=== PATIENT | male | born 1965 | race Caucasian/White ===

== ENCOUNTER 2023-11-23 14:10 | Emergency (ER) | payer OTHER, SELFPAY ==
[2023-11-23 14:10] VITALS: BP 187/100; PULSE 72; RESP 16; TEMP 36.2; O2SAT 98; BMI 16.9
--- NOTE | 2023-11-23 14:12 | EKG12_ITS ---
Test Reason : Blood Pressure : / mmHG Vent. Rate : 070 BPM Atrial Rate : 070 BPM P-R Int : 152 ms QRS Dur : 082 ms QT Int : 424 ms P-R-T Axes : 059 054 051 degrees QTc Int : 457 ms Sinus rhythm with occasional Premature ventricular complexes Otherwise normal ECG Confirmed by RAJAN LEAVITT, ROD ([id number]), field map editor BARBARA ZUNIGA ([id number]) on 11/25/2023 11:41:46 AM Referred By: Lucien Tyler Confirmed By:ROD TOLENTINO MD
--- NOTE | 2023-11-23 14:20 | NURSING ---
NO OLD EKGS
--- NOTE | 2023-11-23 14:50 | RAD_ITS ---
STUDY: X-RAY CHEST REASON FOR EXAM: Male, 58 years old. CP TECHNIQUE: Single AP portable view of the chest. COMPARISON: None. FINDINGS: EKG electrodes are seen. The lungs are clear and expanded. There is no demonstrated pleural abnormality. Normal size heart. Normal mediastinum and homer. Normal visualized pulmonary arteries. There is atherosclerotic tortuosity of the aortic arch and descending thoracic aorta. There are diffuse degenerative changes of the visualized thoracic spine. Normal visualized ribs, clavicles, and shoulders. There is no demonstrated abnormality of the visualized soft tissue structures of the upper abdomen. RAD/Chest 1 View (Portable) IMPRESSION: No acute abnormality is seen. Electronically Signed: Chino Verdin MD at 15:01 EDT ,
[2023-11-23 14:54] LABS: Absolute Lymphocyte Count 3.01 X10^3/uL (0.83-4.51); Absolute Neutrophil Count 4.5 X10^3/uL (2.0-7.7); Basophil# 0.08 X10^3/uL; Basophil% 0.9 % (0-1); Eosinophil# 0.25 X10^3/uL; Eosinophils% 2.9 % (0-5); Hematocrit 44.6 % (40-54); Hemoglobin 15.2 g/dL (13.0-16.5); Lymphocyte # 3.01 X10^3/ul (0.83-4.51); Lymphocyte % 34.8 % (19-41); Mean Corp Hgb Conc 34.1 g/dL (32-36); Mean Corpuscular Hgb 30.5 pg (27.0-32.0); Mean Corpuscular Volume 89.6 fL (80-94); Mean Platelet Vol. 10.2 fl (6.2-12.0); Monocyte# 0.77 X10^3/uL; Monocyte% 8.9 % (0-10); NRBC Flagged by Analyzer 0 % (0-5); Neutrophil # 4.53 X10^3/uL (2.7-7.7); Neutrophil % 52.3 % (47-70); Platelet Count 209 K/mm3 (150-450); RBC Distribution Width CV 12.9 % (11.6-14.6); RBC Distribution Width SD 42.3 fl (35.1-43.9); Red Blood Count 4.98 M/mm3 (4.6-6.2); White Blood Count 8.7 K/mm3 (4.4-11.0)
[2023-11-23 14:55] LABS: Anion Gap 4 (5-15); BUN 13 mg/dL (7-18); BUN/Creat Ratio 13.4 RATIO (10-20); Calcium,Total 8.8 mg/dL (8.5-10.1); Chloride 109 mmol/L (98-107); Creatinine, Serum 0.97 mg/dL (0.70-1.30); EST Glomerular Filtration Rate 84 mL/min (>60); Est Glom Filt Rate - Afr Amer 102 mL/min (>60); Estimated Creatinine Clearance 65.28 ml/min; Glucose 121 mg/dL (74-106); Potassium 3.7 mmol/L (3.5-5.1); Sodium Level 141 mmol/L (136-145); Troponin-I HS (w/2H Reflex) 9 pg/mL (3.0-78.0)
--- NOTE | 2023-11-23 15:07 | EDS_ITS ---
HPI History of Present Illness Chief Complaint: Chest Pain Informant: patient Narrative Narrative: Patient presents with left upper chest chest discomfort going down his arm along with some tingling there, no weakness, that been present since he woke up this morning. Seen about 1500. It has been there all day and constant. Nonpleuritic. With it present he went on a 30-minute walk about 1.5 miles or so, he had no worsening. He had no dyspnea. When he got home he got off the couch to walk to the kitchen and he felt short of breath. He has had episodes of the chest and arm discomfort seemingly randomly over the past 3 weeks or so and occasional dyspnea on exertion. Whenever he does not feel well he checks his blood pressure and it tends to be really high. He also had some palpitations 3 to 4 weeks ago, so his doctor changed his blood pressure med ication and he has not had any more. He is scheduled to follow-up tomorrow to be evaluated for possible Holter monitor with his PCP. Also had an EKG with his PCP 3 to 4 weeks ago and was told he had a right bundle branch block. States he used to exercise more rigorously never had chest discomfort with it. He has been trying to walk twice a day for 30 minutes, approximately 20-minute miles, regularly and does not recall this exertion triggering chest discomfort. He has never had a stress test. He has a history of smoking and his father from heart attack at age 55. CVD Risk Factors: Positive for Hypertension, Family History 1' </=55 and Smoking; Negative for Diabetes or Hypercholesterolemia PE Risk Factors: Negative for Recent Travel/Surgery, Recent Immobilization, Prior DVT or PE, Cancer or OCP + Smoking + >/=35 [facility] Medical History (Updated 11/23/23 @ 17:[address] Lucien Tyler MD) Mitral valve prolapse Hypertension Allergy/AdvReac Type Severity Reaction Status Date / Time No Known Allergies Allergy Verified 11/23/23 14:10 Surgical History H/O right knee surgery Social History Smoking Status: Former smoker ROS ROS ED Constitutional Constitutional ED: Denies chills, fever(s) or sweats Eyes Eyes: Denies change in vision or diplopia ENT ENT ED: Denies rhinorrhea or sore throat Cardiovascular Cardiovascular: Reports chest pain and palpitations; Denies lightheadedness, pedal edema or syncope Respiratory/Chest Respiratory/Chest: Reports dyspnea on exertion; Denies cough Gastrointestinal Gastrointestinal: Denies abdominal pain, diarrhea, nausea or vomiting Genitourinary Genitourinary ED: Denies dysuria or hematuria Musculoskeletal Musculoskeletal: Denies back pain or neck pain Integumentary Denies abscess or rash Neurologic Neurologic: Denies headache(s), paresthesias or weakness Psychiatric Psychiatric: Denies anxiety or suicidal thoughts EXAM Physical Exam Const Vital Signs: 11/23/23 14:10 11/23/23 14:37 11/23/23 14:37 Temperature 97.2 F L Temperature Source Temporal Pulse Rate 72 Respiratory Rate 16 Respiratory Effort Normal Blood Pressure 187/100 H Blood Pressure Mean 129 Pulse Ox 98 Oxygen Delivery Method Room Air Room Air 11/23/23 16:10 11/23/23 16:25 Temperature Temperature Source Pulse Rate 57 L 57 L Respiratory Rate 19 H Respiratory Effort Blood Pressure 132/92 H 143/94 H Blood Pressure Mean 105 Pulse Ox 95 Oxygen Delivery Method Room Air Positive well nourished and well developed General Appearance ED: well developed and NAD HEENT Reports moist mucous membranes normocephalic and atraumatic Eyes PERRL and EOMs intact bilaterally Neck full ROM and supple Resp normal respiratory effort and clear to auscultation bilaterally Cardio regular rate, regular rhythm and no murmurs GI non-tender and non-distended Auscultation: normoactive bowel sounds Palpation: soft Back/Spine no CVA tenderness General Back: other FROM Extremity normal to inspection General Extremety ED: Negative for edema, pulses abnormal or tenderness General Extremity: Negative for edema or pulses abnormal Neuro oriented x3, CN's II-XII intact bilaterally and no sensory deficits noted Sensorium / Orientation: awake and alert Motor Exam: strength 5/5 throughout Skin no rashes or lesions noted and no wounds Heart Score History: Moderately Suspicious ECG: Normal Age: >45 - <65 years Risk Factors: >/= 3 Risk Factors or History of CAD Troponin: </= Normal Limit Score: 4 MDM MDM MDM Narrative Medical decision making narrative: EKG is normal except for a PVC. His initial troponin is normal, his other labs are noted and unremarkable, 1 view chest x-ray shows narrow mediastinum and no acute abnormalities of my interpretation. Radiology in agreement. Patient was given a nitroglycerin given that his pressure is high and he is still having chest discomfort with arm pain. His discomfort resolved and he had a mild headache with it. His heart score is 4 given his risk. I offered admission for provocative stress testing which she has never had before, he declines. He understands the risk of delaying this, which basically is recurrence, OK and sequelae. He would rather follow-up for that as an outpatient. We did get a second troponin it is negative. Lab Data Attestation: I reviewed the patient's lab results. Labs: Laboratory Results - last 24 hr 11/23/23 11/23/23 14:30 16:30 WBC 8.7 RBC 4.98 Hgb 15.2 Hct 44.6 MCV 89.6 MCH 30.5 MCHC 34.1 RDW Std Deviation 42.3 RDW Coeff of [place] 12.9 Plt Count 209 MPV 10.2 Immature Gran % (Auto) 0.200 Neut % (Auto) 52.3 Lymph % (Auto) 34.8 [place] % (Auto) 8.9 Eos % (Auto) 2.9 Baso % (Auto) 0.9 Absolute Neuts (auto) 4.5 Absolute Lymphs (auto) 3.01 Nucleated RBC % 0 Sodium 141 Potassium 3.7 Chloride 109 H Carbon Dioxide 27.0 Anion Gap 4 L BUN 13 Creatinine 0.97 Estim Creat Clear Calc 65.28 Est GFR (MDRD) Af Amer 102 Est GFR (MDRD) Non-Af 84 BUN/Creatinine Ratio 13.4 Glucose 121 H Calcium 8.8 Troponin I High Sens 9 9 Radiography Diagnostic Testing: Clinical Impression(s) from Imaging Studies Chest X-Ray 11/23/23 14:50 IMPRESSION: No acute abnormality is seen. Electronically Signed: Chino Verdin MD at 15:01 EDT , Rhythm Strip Rhythm Strip: Sinus Rhythm Rate: 70 Ectopy: None EKG Initial EKG: Attestation: I personally reviewed and interpreted this EKG as follows: Interpretation: Sinus Rhythm and No Acute Injury Pattern Comments: PVC. Otherwise normal EKG. Normal axis. Normal intervals. No RBBB. Prior EKG tracings: not available for review Discharge Plan Triage Chief Complaint: Chest Pain ED Provider: Lucien Tyler Dx/Rx/DC Orders Clinical Impression: Chest pain Instructions: ED Chest Pain, Uncertain Cause Primary Care Provider: Real Lundberg NP Referrals: Real Lundberg [employer], [employer] [Primary Care Provider] - Keep Ania appointment Print Language: French Disposition Disposition: Home, Self Care
[2023-11-23 16:10] VITALS: BP 132/92; PULSE 57; RESP 19; O2SAT 95
[2023-11-23 16:25] VITALS: BP 143/94; PULSE 57
[2023-11-23] MEDS: Nitroglycerin SL (ED/IMG/CATH) 0.4 MG TABLET SL (16:25)
[2023-11-23 16:35] LABS: Reflex Troponin-HS? (from REC) Y
[2023-11-23 17:14] LABS: Troponin-I HS 9 pg/mL (3.0-78.0)
[2023-11-23 17:47] VITALS: BP 130/80; PULSE 54; RESP 18; TEMP 36.6; O2SAT 97
== END 2023-11-23 17:47 | disposition home or self-care (01) ==
PROVIDERS: Emergency Provider Emergency Medicine; PCP Nurse Practitioner Family; Referring Provider Emergency Medicine; Visit Provider Emergency Medicine
DX: R07.89 Other chest pain (principal); I10 Essential (primary) hypertension; Z87.891 Personal history of nicotine dependence; I49.3 Ventricular premature depolarization; R06.09 Other forms of dyspnea; Z79.899 Other long term (current) drug therapy; R00.2 Palpitations
CPT/HCPCS: 71045; 80048; 84484; 85025; 93005; 99284; A4216

== ENCOUNTER → 2024-01-27 | Outpatient (CLI) | payer OTHER, SELFPAY ==
--- NOTE | 2024-01-27 15:27 | STRESSREP ---
Stress Test Report Exercise stress test. 58-year-old male with a history of chest pain Stress protocol: Resting EKG demonstrates normal sinus rhythm with a rate of 68 bpm resting blood pressure is 138/70 mmHg. occasional premature ventricular complexes noted and T wave inversions are noted in lead III. The patient exercised according to the regular Brian protocol for a total duration of 6 minutes and 21 seconds attaining a maximum heart rate of 157 bpm which was 96% of maximum predicted heart rate; the maximum workload was 8 metabolic equivalents. At rest there were no ST or T wave changes noted to suggest ischemia and at peak exercise upsloping ST changes only were noted which did not meet the criteria for ischemia. No clinical angina was noted the test was terminated due to the target heart rate being achieved/fatigue. The peak blood pressure was 172/80 mmHg. Rate-pressure product was 24,000. Conclusion: Stress test with no EKG criteria for ischemia at a moderate workload
== END | disposition home or self-care (01) ==
LOC: CVS 10:21
PROVIDERS: PCP Nurse Practitioner Family; Referring Provider Nurse Practitioner Family; Visit Provider Nurse Practitioner Family
DX: R07.9 Chest pain, unspecified (principal); I34.1 Nonrheumatic mitral (valve) prolapse; I45.10 Unspecified right bundle-branch block; I10 Essential (primary) hypertension
CPT/HCPCS: 93017

== ENCOUNTER → 2025-01-01 | Outpatient (CLI) | payer OTHER, SELFPAY ==
--- OUTSIDE RECORDS SUMMARY | 2025-01-01 14:57 | XMS RPT_ITS | CCD ---
Author Organization [facility] Care Team Providers Care End User Support Specialist Name Role Phone TAMIKA MANAGER FIBER - FIXED ROUTE BUS OPERATOR, REAL Tyson Primary Care Phys ician TAMIKA MANAGER FIBER - FIXED ROUTE BUS OPERATOR, REAL Tyson Attending U navailable TAMIKA MANAGER FIBER - FIXED ROUTE BUS OPERATOR, REAL Tyson Primary Care U navailable TAMIKA MANAGER FIBER - FIXED ROUTE BUS OPERATOR, REAL Tyson Attending U navailable TAMIKA MANAGER FIBER - FIXED ROUTE BUS OPERATOR, REAL Tyson Primary Care U navailable TAMIKA MANAGER FIBER - FIXED ROUTE BUS OPERATOR, REAL Tyson Attending U navailable TAMIKA MANAGER FIBER - FIXED ROUTE BUS OPERATOR, REAL Tyson Primary Care U navailable KT CHAN MD Attending Unavailable TAMIKA MANAGER FIBER - FIXED ROUTE BUS OPERATOR, REAL Tyson Primary Care U navailable TAMIKA MANAGER FIBER - FIXED ROUTE BUS OPERATOR, REAL Tyson Attending U navailable TAMIKA MANAGER FIBER - FIXED ROUTE BUS OPERATOR, REAL Tyson Primary Care U navailable Lonnie Zelaya Attending Unavailable Tamika DIRECTOR EXPERIMENTAL MEDICINE, Real Acosta Referring Unav ailable Tamika DIRECTOR EXPERIMENTAL MEDICINE, Real Acosta Primary Care Unav ailable Tamika DIRECTOR EXPERIMENTAL MEDICINE, Real Acosta Consulting Unav ailable Tamika DIRECTOR EXPERIMENTAL MEDICINE, Real Acosta Attending Unav ailable Grant DIRECTOR EXPERIMENTAL MEDICINE, Real Acosta Referring Unav ailable Tamika DIRECTOR EXPERIMENTAL MEDICINE, Real Acosta Primary Care Unav ailable Grant DIRECTOR EXPERIMENTAL MEDICINE, Real Acosta Primary Care Unav ailable Lucien Tyler Attending Unavailable Lucien Tyler Referring Unavailable Olivia Nunez Attending Unavailable Medications Current Medications Medication Drug Class(es) Dates Sig (Normalized) Sig (Original) amLODIPine 5 mg oral tablet (1 source) Dihydropyridine Calcium Channel Yonas Start: 01-02-2024 End: 03-02-2024 Norvasc 5 mg oral tablet Dose : 5 mg = 1 tab(s), Oral, qDay, # 90 tab(s), 1 Refill(s), Pharmacy: [facility], HTN, goal below 140/90, 182, cm, 01/02/24 7:05:00 EST, Height, kg, 01/02/24 7:05:00 EST, Dosing Weight Start Date: 01/02/24 Stop Date: 03/02/24 Status: Ordered CoQ10 100 mg oral capsule (2 sources) Start: 06-22-2022 take 1 mg by mouth once daily CoQ10 100 mg oral capsule mg = cap(s), Oral, qDay, 0 Refill(s) Start Date: 06/22/22 Status: Ordered ferrous sulfate 200 mg oral tablet (1 source) Start: 01-02-2024 ferrous sulfate 200 mg (65 mg elemental iron) oral tablet Dose : 200 mg = 1 tab(s), Oral, qDay, # 120 tab(s), 0 Refill(s) Start Date: 01/02/24 Status: Ordered valsartan 160 mg oral tablet (2 sources) Angiotensin 2 Receptor Yonas Start: 06-22-2022 End: 08-21-2022 Diovan 160 mg oral tablet Dose : 160 mg = 1 tab(s), Oral, qDay, # 30 tab(s), 1 Refill(s), Pharmacy: [facility], Uncontrolled hypertension, 182, cm, 06/22/22 14:33:00 EDT, Height Start Date: 06/22/22 Stop Date: 08/21/22 Status: Ordered Problems Problem Classification Problem Date Documented Date Episodic/Chronic Cardiac dysrhythmias (4 sources) Palpitations; Translations: [Palpitations] Episodic Conduction disorders (2 sources) EKG: right bundle branch block; Translations: [Unspecified right bundle-branch block] Onset: 02-28-2024 11-04-2023 Chronic Comment on above: 11/04/2023 EKG: Interpretation: -Perceived rhythm: Normal sinus rhythm -Ventricular rate: 64 bpm -Specific ST T changes noted: No -Acute ischemia noted: No -Other anomalies: Incomplete right bundle branch block Essential hypertension (7 sources) Essential hypertension; Translations: [Essential (primary) hypertension] Onset: 02-28-2024 Chronic Comment on above: 11/04/2023 EKG: Interpretation: -Perceived rhythm: Normal sinus rhythm -Ventricular rate: 64 bpm -Specific ST T changes noted: No -Acute ischemia noted: No -Other anomalies: Incomplete right bundle branch block 07/07/2022 Echocardi ogram Summary: 1. Left ventricle: The cavity size is normal. Wall thickness is normal. Systolic function is normal. The estimated ejection fraction is 60-65%. Wall motion is normal; there are no regional wall motion abnormalities. Normal diastolic function. 2. Mitral valve: Mild prolapse, involving the posterior leaflet. 3. Right ventricle: The RV systolic pressure by Doppler is 48 mm Hg. 4. Pulmonary arteries: Systolic pressure is mildly to moderately increased. 5. Right atrium: The atrium is mildly dilated. The estimated right atrial pressure is 15 mm Hg. Heart valve disorders (2 sources) Mitral valve prolapse; Translations: [Nonrheumatic mitral (valve) prolapse] Onset: 02-28-2024 07-23-2022 Chronic Comment on above: 07/07/2022 Echocardi ogram Summary: 1. Left ventricle: The cavity size is normal. Wall thickness is normal. Systolic function is normal. The estimated ejection fraction is 60-65%. Wall motion is normal; there are no regional wall motion abnormalities. Normal diastolic function. 2. Mitral valve: Mild prolapse, involving the posterior leaflet. 3. Right ventricle: The RV systolic pressure by Doppler is 48 mm Hg. 4. Pulmonary arteries: Systolic pressure is mildly to moderately increased. 5. Right atrium: The atrium is mildly dilated. The estimated right atrial pressure is 15 mm Hg. Heart valve disorders (1 source) Irregular heart beat 11-04-2023 Episodic Nonspecific chest pain (3 sources) Chest pain; Translations: [Chest pain, unspecified] Onset: 02-28-2024 11-24-2023 Episodic Nutritional deficiencies (4 sources) Vitamin D deficiency; Translations: [Vitamin D deficiency, unspecified] Chronic Other nutritional; endocrine; and metabolic disorders (1 source) Body mass index 30+ - obesity 07-23-2022 Chronic Other screening for suspected conditions (not mental disorders or infectious disease) (3 sources) Encounter for screening for malignant neoplasm of prostate; Translations: [Screening for malignant neoplasm done] Episodic Residual codes; unclassified (4 sources) Hypersomnia; Translations: [Hypersomnia, unspecified] Chronic Residual codes; unclassified (1 source) Increased body mass index 07-04-2023 Episodic Unclassified (11 sources) Patient encounter status 06-22-2022 Unclassified (1 source) Non-smoker 07-04-2023 Results Test Name Value Interpretation Reference Range Facility Stress Reporton 01-27-2024 Stress Report [facility] [address] [place] [address] MR#: [id number] Acct: [id number] Name: EUFEMIA ABBASI Rep #: [id number] : 1965 [id number] From: Lonnie Zelaya MD Primary Care: SAVANNAH Castillo Status: REG CLI Referring Dr: Real Lundberg NP DIRECTOR EXPERIMENTAL MEDICINE-Esme Sex: M C Stress Test Report Exercise stress test. 58-year-old male with a history of chest pain Stress protocol: Resting EKG demonstrates normal sinus rhythm with a rate of 68 bpm resting blood pressure is 138/70 mmHg. occasional premature ventricular complexes noted and T wave inversions are noted in lead III. The patient exercised according to the regular Brian protocol for a total duration of 6 minutes and 21 seconds attaining a maximum heart rate of 157 bpm which was 96% of maximum predicted heart rate; the maximum workload was 8 metabolic equivalents. At rest there were no ST or T wave changes noted to suggest ischemia and at peak exercise upsloping ST changes only were noted which did not meet the criteria for ischemia. No clinical angina was noted the test was terminated due to the target heart rate being achieved/fatigue. The peak blood pressure was 172/80 mmHg. Rate-pressure product was 24,000. Conclusion: Stress test with no EKG criteria for ischemia at a moderate workload 01/27/24 1531 Date Lonnie Zelaya MD CC: DIRECTOR EXPERIMENTAL MEDICINE-C Real Lundberg Date Dictated: 01/27/241526 Date Transcribed: 01/27/24 152 Casting Repairer: CO Signed Normal [facility] .GFRon 01-02-2024 GFR Non- 88 ml/min/1.73sqm [facility] Comment on above: Result Comment: GFR Population mean for , Non- Americans Ages 20-29 = 116 mL/min/1.73 sq.m. Ages 30-39 = 107 mL/min/1.73 sq.m. Ages 40-49 = 99 mL/min/1.73 sq.m. Ages 50-59 = 93 mL/min/1.73 sq.m. Ages 60-69 = 85 mL/min/1.73 sq.m. Ages 70+ = 75 mL/min/1.73 sq.m. Chronic Kidney Disease: Less than 60 mL/min/1.73 square meters End Stage Renal Disease: Less than 15 mL/min/1.73 square meters Performed By: #### A 1C, GFR, CMP, LIPID, VIDH, PSA #### [id number] [place], [place] [address] GFR 107 ml/min/1.73sqm Normal [facility] Comment on above: Result Comment: GFR Population mean for , Non- Americans Ages 20-29 = 116 mL/min/1.73 sq.m. Ages 30-39 = 107 mL/min/1.73 sq.m. Ages 40-49 = 99 mL/min/1.73 sq.m. Ages 50-59 = 93 mL/min/1.73 sq.m. Ages 60-69 = 85 mL/min/1.73 sq.m. Ages 70+ = 75 mL/min/1.73 sq.m. Chronic Kidney Disease: Less than 60 mL/min/1.73 square meters End Stage Renal Disease: Less than 15 mL/min/1.73 square meters Performed By: #### A 1C, GFR, CMP, LIPID, VIDH, PSA #### [address] [place], [place] [address] A1Con 01-02-2024 Glucose [Mass/Vol] 100 mg/dL Normal [facility] Comment on above: Result Comment: Yisel mated Average Glucose calculated by equation ((28.7xA1C)-46.7) Estimated average glucose (eAG) is a calculated value from Hemoglobin A1C and is parts representative of the average blood glucose level in the last 2-3 month period. Normal range: less than 114 mg/dL Performed By: #### A 1C, GFR, CMP, LIPID, VIDH, PSA #### [id number] [place], [place] [address] HbA1c (Bld) [Mass fraction] 5.1 % Normal 4.3-6.4 [facility] Comment on above: Performed By: #### A 1C, GFR, CMP, LIPID, VIDH, PSA #### [address] [address] CMPon 01-02-2024 Albumin Level 3.8 G/dL Normal 3.5-5.0 [facility] Comment on above: Performed By: #### A 1C, GFR, CMP, LIPID, VIDH, PSA #### [address] [address] Albumin/Globulin [Mass ratio] 1.3 {ratio} Normal 1.1-2.5 [facility] Comment on above: Performed By: #### A 1C, GFR, CMP, LIPID, VIDH, PSA #### [address] [address] ALP [Catalytic activity/Vol] 79 U/L Normal 40-135 [facility] Comment on above: Performed By: #### A 1C, GFR, CMP, LIPID, VIDH, PSA #### [address] [address] ALT [Catalytic activity/Vol] 22 U/L Normal 16-63 [facility] Comment on above: Performed By: #### A 1C, GFR, CMP, LIPID, VIDH, PSA #### [address] [address] AST [Catalytic activity/Vol] 26 U/L Normal 10-40 [facility] Comment on above: Performed By: #### A 1C, GFR, CMP, LIPID, VIDH, PSA #### [address] [address] Bili Total 0.8 mg/dL Normal 0.2-1.0 [facility] Comment on above: Result Comment: Use of this assay is not recommended for patients undergoing treatment with eltrombopag due to the potential for falsely elevated results. Performed By: #### A 1C, GFR, CMP, LIPID, VIDH, PSA #### [address] [address] BUN/Creatinine Ratio 20 ratio Normal 7-27 [facility] Comment on above: Performed By: #### A 1C, GFR, CMP, LIPID, VIDH, PSA #### [address] [address] Calcium [Mass/Vol] 8.9 mg/dL Normal 8.4-10.2 [facility] Comment on above: Performed By: #### A 1C, GFR, CMP, LIPID, VIDH, PSA #### [address] [address] Chloride [Moles/Vol] 106 mmol/L Normal 98-107 [facility] Comment on above: Performed By: #### A 1C, GFR, CMP, LIPID, VIDH, PSA #### [address] [address] CO2 [Moles/Vol] 29 mmol/L Normal 22-29 [facility] Comment on above: Performed By: #### A 1C, GFR, CMP, LIPID, VIDH, PSA #### [address] [address] Creatinine [Mass/Vol] 0.89 mg/dL Normal 0.70-1.30 [facility] Comment on above: Result Comment: Test ing performed on Siemens Dimension EXL analyzer using a modified kinetic Jayson technique. Performed By: #### A 1C, GFR, CMP, LIPID, VIDH, PSA #### [address] [address] Electrolyte Balance 7.0 mEq/L Normal 4.0-15.0 [facility] Comment on above: Performed By: #### A 1C, GFR, CMP, LIPID, VIDH, PSA #### [address] [address] Globulin 3.0 G/dL Normal [facility] Comment on above: Performed By: #### A 1C, GFR, CMP, LIPID, VIDH, PSA #### [address] [address] Glucose [Mass/Vol] 96 mg/dL Normal 70-105 [facility] Comment on above: Performed By: #### A 1C, GFR, CMP, LIPID, VIDH, PSA #### [address] [address] Potassium [Moles/Vol] 4.3 mmol/L Normal 3.5-5.1 [facility] Comment on above: Performed By: #### A 1C, GFR, CMP, LIPID, VIDH, PSA #### [address] [address] Sodium [Moles/Vol] 142 mmol/L Normal 136-145 [facility] Comment on above: Performed By: #### A 1C, GFR, CMP, LIPID, VIDH, PSA #### [address] [address] Total Protein 6.8 G/dL Normal 6.4-8.2 [facility] Comment on above: Performed By: #### A 1C, GFR, CMP, LIPID, VIDH, PSA #### [address] [address] Urea nitrogen [Mass/Vol] 18 mg/dL Normal 7-18 [facility] Comment on above: Performed By: #### A 1C, GFR, CMP, LIPID, VIDH, PSA #### [address] [address] LABORATORYOrdered By: SYSTEM SYSTEM on 01-02-2024 25-hydroxyvitamin D3 [Mass/Vol] 20.9 ng/mL Invalid Interpretation Code AO ADM SS Comment on above: Interpretive Data: I nterpretive Values Based on Total 25(OH) Vitamin D: Deficient <20 ng/mL Insufficient 20 - <30 ng/mL Sufficient 30-100 ng/mL Albumin BCP dye [Mass/Vol] 3.8 G/dL Normal 3.5 - 5.0 G/dL AO ADM SS Albumin/Globulin [Mass ratio] 1.3 {ratio} Normal 1.1 - 2.5 ratio AO ADM SS ALP [Catalytic activity/Vol] 79 U/L Normal 40 - 135 U/L AO ADM SS ALT With P-5'-P [Catalytic activity/Vol] 22 U/L Normal 16 - 63 U/L AO ADM SS AST With P-5'-P [Catalytic activity/Vol] 26 U/L Normal 10 - 40 U/L AO ADM SS Bilirubin [Mass/Vol] 0.8 mg/dL Normal 0.2 - 1 .0 mg/dL AO ADM SS Comment on above: Interpretive Data: U se of this assay is not recommended for patients undergoing treatment with eltrombopag due to the potential for falsely elevated results. Calcium [Mass/Vol] 8.9 mg/dL Normal 8.4 - 10. 2 mg/dL AO ADM SS Chloride [Moles/Vol] 106 mmol/L Normal 98 - 10 7 mmol/L AO ADM SS CO2 [Moles/Vol] 29 mmol/L Normal 22 - 29 mmol/L AO ADM SS Creatinine [Mass/Vol] 0.89 mg/dL Normal 0.70 - 1.30 mg/dL AO ADM SS Comment on above: Interpretive Data: T esting performed on Siemens Dimension EXL analyzer using a modified kinetic Jayson technique. Electrolyte Balance 7.0 mEq/L Normal 4.0 - 15 .0 mEq/L AO ADM SS GFR/1.73 sq M.predicted among blacks MDRD (S/P/Bld) [Vol rate/Area] 107 ml/min/1.73sqm Invalid Interpretation Code AO Chemistry S Comment on above: Interpretive Data: GFR Population mean for , Non- Americans Ages 20-29 = 116 mL/min/1.73 sq.m. Ages 30-39 = 107 mL/min/1.73 sq.m. Ages 40-49 = 99 mL/min/1.73 sq.m. Ages 50-59 = 93 mL/min/1.73 sq.m. Ages 60-69 = 85 mL/min/1.73 sq.m. Ages 70+ = 75 mL/min/1.73 sq.m. Chronic Kidney Disease: Less than 60 mL/min/1.73 square meters End Stage Renal Disease: Less than 15 mL/min/1.73 square meters GFR/1.73 sq M.predicted among non-blacks MDRD (S/P/Bld) [Vol rate/Area] 88 ml/min/1.73sqm Invalid Interpretation Code AO Chemistry S Comment on above: Interpretive Data: GFR Population mean for , Non- Americans Ages 20-29 = 116 mL/min/1.73 sq.m. Ages 30-39 = 107 mL/min/1.73 sq.m. Ages 40-49 = 99 mL/min/1.73 sq.m. Ages 50-59 = 93 mL/min/1.73 sq.m. Ages 60-69 = 85 mL/min/1.73 sq.m. Ages 70+ = 75 mL/min/1.73 sq.m. Chronic Kidney Disease: Less than 60 mL/min/1.73 square meters End Stage Renal Disease: Less than 15 mL/min/1.73 square meters Globulin 3.0 G/dL Invalid Interpretation Code AO ADM SS Glucose [Mass/Vol] 100 mg/dL Invalid Interpretation Code AO Chemistry S Comment on above: Interpretive Data: E stimated average glucose (eAG) is a calculated value from Hemoglobin A1C and is parts representative of the average blood glucose level in the last 2-3 month period. Normal range: less than 114 mg/dL Glucose [Mass/Vol] 96 mg/dL Normal 70 - 105 mg/dL AO ADM SS HbA1c (Bld) [Mass fraction] 5.1 % Normal 4.3 - 6.4 % AO ADM SS Potassium [Moles/Vol] 4.3 mmol/L Normal 3.5 - 5.1 mmol/L AO ADM SS Prostate specific Ag [Mass/Vol] 0.70 ng/mL Normal 0.00 - 4.00 ng/mL AO ADM SS Protein [Mass/Vol] 6.8 G/dL Normal 6.4 - 8.2 G/dL AO ADM SS Sodium [Moles/Vol] 142 mmol/L Normal 136 - 145 mmol/L AO ADM SS Urea nitrogen [Mass/Vol] 18 mg/dL Normal 7 - 18 mg/dL AO ADM SS Urea nitrogen/Creatinine [Mass ratio] 20 ratio Normal 7 - 27 ratio AO ADM SS LABORATORYOrdered By: Padmini Hurst on 01-02-2024 Cholesterol [Mass/Vol] 185 mg/dL Normal 0 - 200 mg/dL AO ADM SS Comment on above: Interpretive Data: C holesterol Reference Interval: Less than 200 Desirable 200-239 Borderline high risk 240 and above High risk Cholesterol in HDL [Mass/Vol] 61 mg/dL High 40 - 60 mg/dL AO ADM SS Cholesterol in LDL [Mass/Vol] 114 mg/dL Normal 0 - 130 mg/dL AO ADM SS Triglyceride [Mass/Vol] 50 mg/dL Normal 0 - 150 mg/dL AO ADM SS Comment on above: Interpretive Data: T riglyceride Reference Interval: Less than 150 Normal 150-199 Borderline high risk 200-499 High risk 500 or higher Very high risk LIPIDon 01-02-2024 Cholesterol [Mass/Vol] 185 mg/dL Normal 0-200 [facility] Comment on above: Result Comment: Chol esterol Reference Interval: Less than 200 Desirable 200-239 Borderline high risk 240 and above High risk Performed By: #### A 1C, GFR, CMP, LIPID, VIDH, PSA #### [address] [address] Cholesterol in HDL [Mass/Vol] 61 mg/dL High 40-60 [facility] Comment on above: Performed By: #### A 1C, GFR, CMP, LIPID, VIDH, PSA #### [address] [address] Cholesterol in LDL [Mass/Vol] 114 mg/dL Normal 0-130 [facility] Comment on above: Performed By: #### A 1C, GFR, CMP, LIPID, VIDH, PSA #### [address] [address] Triglyceride [Mass/Vol] 50 mg/dL Normal 0-150 [facility] Comment on above: Result Comment: Trig lyceride Reference Interval: Less than 150 Normal 150-199 Borderline high risk 200-499 High risk 500 or higher Very high risk Performed By: #### A 1C, GFR, CMP, LIPID, VIDH, PSA #### [address] [address] PSAon 01-02-2024 Prostate Specific Antigen 0.70 ng/mL Normal 0.00-4.00 [facility] Comment on above: Performed By: #### A 1C, GFR, CMP, LIPID, VIDH, PSA #### [address] [address] VIDHon 01-02-2024 Vit. D 25-Hydroxy 20.9 ng/mL Normal [facility] Comment on above: Result Comment: Inte rpretive Values Based on Total 25(OH) Vitamin D: Deficient <20 ng/mL Insufficient 20 - <30 ng/mL Sufficient 30-100 ng/mL Performed By: #### A 1C, GFR, CMP, LIPID, VIDH, PSA #### [facility] [address] [place], [place] [address] 12 Lead EKGon 11-23-2023 12 Lead EKG [facility] [address] [place] [address] 12 Lead EKG 11/23/23 1416 MR#: [id number] Acct: [id number] Name: EUFEMIA ABBASI Rep #: [id number] : 1965 58 From: Lonnie Zelaya MD Attending Dr: Status: DEP ER Ordering Dr: Lucien Tyler MD Date: 11/23/23 Location: ED Sex: M C Admitted: Test Reason : Blood Pressure : / mmHG Vent. Rate : 070 BPM Atrial Rate : 070 BPM P-R Int : 152 ms QRS Dur : 082 ms QT Int : 424 ms P-R-T Axes : 059 054 051 degrees QTc Int : 457 ms Sinus rhythm with occasional Premature ventricular complexes Otherwise normal ECG Confirmed by LONNIE ZELAYA MD ([id number]), editor & co founder BARBARA ZUNIGA ([id number]) on 11/25/2023 11:41:46 AM Referred By: Lucien Tyler Confirmed By:LONNIE ZELAYA MD 11/25/23 1141 Date Lonnie Zelaya MD CC: DIRECTOR EXPERIMENTAL MEDICINE-Esme Lundberg; Dr. Lucien Tyler MD Signed Normal [facility] Basic Metabolic Profile (BMP )on 11-23-2023 BUN/CRE 13.4 RATIO Normal 12-10 [facility] Comment on above: Order Comment: 1 Y Performed By: #### L 100.0100, L501.5425, L500.2500 #### [facility] [address] [place], [address] CA,Total 8.8 mg/dL Normal 8.5-10.1 [facility] Comment on above: Order Comment: 1 Y Performed By: #### L 100.0100, L501.5425, L500.2500 #### [facility] [address] [place], [address] Chloride [Moles/Vol] 109 mmol/L High 98-107 [facility] Comment on above: Order Comment: 1 Y Performed By: #### L 100.0100, L501.5425, L500.2500 #### [facility] [address] [place], [address] CO2 [Moles/Vol] 27.0 mmol/L Normal 21.0-32.0 [facility] Comment on above: Order Comment: 1 Y Performed By: #### L 100.0100, L501.5425, L500.2500 #### [facility] [address] [place], [address] Creatinine [Mass/Vol] 0.97 mg/dL Normal 0.70-1.30 [facility] Comment on above: Order Comment: 1 Y Result Comment: The validity of the calculated GFR GFRAA in patients over 70 years has not been determined. Clinical correlation is essential. Performed By: #### L 100.0100, L501.5425, L500.2500 #### [facility] [address] [place], [address] ECRCL 65.28 ml/min Normal [facility] Comment on above: Order Comment: 1 Y Performed By: #### L 100.0100, L501.5425, L500.2500 #### [facility] [address] [place], [address] EST GFR - AA 102 mL/min Normal >60 [facility] Comment on above: Order Comment: 1 Y Result Comment: Afri can Burmese GFR Calc Performed By: #### L 100.0100, L501.5425, L500.2500 #### [facility] [address] [place], [address] GAP 4 Low 5-15 [facility] Comment on above: Order Comment: 1 Y Performed By: #### L 100.0100, L501.5425, L500.2500 #### [facility] [address] [place], [address] GFR/1.73 sq M.predicted among non-blacks MDRD (S/P/Bld) [Vol rate/Area] 84 mL/min/{1.73_m2} Normal >60 [facility] Comment on above: Order Comment: 1 Y Result Comment: Non- GFR Calc Performed By: #### L 100.0100, L501.5425, L500.2500 #### [facility] [address] [place], [address] Glucose [Mass/Vol] 121 mg/dL High 74-106 [facility] Comment on above: Order Comment: 1 Y Result Comment: Fast ing Glucose result from 100 to 125 mg/dL suggests IMPAIRED HOMEOSTASIS per A.D.A. criteria. Performed By: #### L 100.0100, L501.5425, L500.2500 #### [facility] [address] [place], [address] Potassium [Moles/Vol] 3.7 mmol/L Normal 3.5-5.1 [facility] Comment on above: Order Comment: 1 Y Performed By: #### L 100.0100, L501.5425, L500.2500 #### [facility] [address] [place], [address] Sodium [Moles/Vol] 141 mmol/L Normal 136-145 [facility] Comment on above: Order Comment: 1 Y Performed By: #### L 100.0100, L501.5425, L500.2500 #### [facility] [address] [place], [address] Urea nitrogen [Mass/Vol] 13 mg/dL Normal 7-18 [facility] Comment on above: Order Comment: 1 Y Performed By: #### L 100.0100, L501.5425, L500.2500 #### [facility] [address] [place], [address] CBC W/Diff, Automatedon 10-0 2-4 Absolute Lymph 3.01 X10 3/uL Normal 0.83-4.51 [facility] Comment on above: Performed By: #### L 100.0100, L501.5425, L500.2500 #### [facility] [address] [place], [address] Absolute Neut 4.5 X10 3/uL Normal 2.0-7.7 [facility] Comment on above: Performed By: #### L 100.0100, L501.5425, L500.2500 #### [facility] [address] [place], [address] Basophils/100 WBC (Bld) 0.9 % Normal 0-1 [facility] Comment on above: Performed By: #### L 100.0100, L501.5425, L500.2500 #### [facility] [address] [place], [address] Eosinophils/100 WBC (Bld) 2.9 % Normal 0-5 [facility] Comment on above: Performed By: #### L 100.0100, L501.5425, L500.2500 #### [facility] [address] [place], [address] Erythrocyte distribution width (RBC) [Ratio] 12.9 % Normal 11.6-14.6 [facility] Comment on above: Performed By: #### L 100.0100, L501.5425, L500.2500 #### [facility] [address] [place], [address] Hematocrit (Bld) [Volume fraction] 44.6 % Normal 40-54 [facility] Comment on above: Performed By: #### L 100.0100, L501.5425, L500.2500 #### [facility] [address] [place], [address] Hemoglobin (Bld) [Mass/Vol] 15.2 g/dL Normal 13.0-16.5 [facility] Comment on above: Performed By: #### L 100.0100, L501.5425, L500.2500 #### [facility] [address] [place], [address] IG% 0.200 Normal 0.0-0.9 [facility] Comment on above: Result Comment: IG% - Immature Granulocytes (promyelocytes, myelocytes and metamyelocytes) > 1% indicates that a LEFT SHIFT is Present. Performed By: #### L 100.0100, L501.5425, L500.2500 #### [facility] [address] [place], [address] Lymphocytes/100 WBC (Bld) 34.8 % Normal 19-41 [facility] Comment on above: Performed By: #### L 100.0100, L501.5425, L500.2500 #### [facility] [address] [place], [address] MCH (RBC) [Entitic mass] 30.5 pg Normal 27.0-32.0 [facility] Comment on above: Performed By: #### L 100.0100, L501.5425, L500.2500 #### [facility] [address] [place], [address] MCHC (RBC) [Mass/Vol] 34.1 g/dL Normal 32-36 [facility] Comment on above: Performed By: #### L 100.0100, L501.5425, L500.2500 #### [facility] [address] [place], [address] MCV (RBC) [Entitic vol] 89.6 fL Normal 80-94 [facility] Comment on above: Performed By: #### L 100.0100, L501.5425, L500.2500 #### [facility] [address] [place], [address] Monocytes/100 WBC (Bld) 8.9 % Normal 0-10 [facility] Comment on above: Performed By: #### L 100.0100, L501.5425, L500.2500 #### [facility] [address] [place], [address] Neutrophils/100 WBC (Bld) 52.3 % Normal 47-70 [facility] Comment on above: Performed By: #### L 100.0100, L501.5425, L500.2500 #### [facility] [address] [place], [address] Nucleated RBC (Bld) [#/Vol] 0 10*3/uL Normal 0-5 [facility] Comment on above: Performed By: #### L 100.0100, L501.5425, L500.2500 #### [facility] [address] [place], [address] Platelet mean volume (Bld) [Entitic vol] 10.2 fL Normal 6.2-12.0 [facility] Comment on above: Performed By: #### L 100.0100, L501.5425, L500.2500 #### [facility] [address] [place], [address] Platelets (Bld) [#/Vol] 209 10*3/uL Normal 150-450 [facility] Comment on above: Performed By: #### L 100.0100, L501.5425, L500.2500 #### [facility] [address] [place], [address] RBC (Bld) [#/Vol] 4.98 10*6/uL Normal 4.6-6.2 [facility] Comment on above: Performed By: #### L 100.0100, L501.5425, L500.2500 #### [facility] [address] [place], [address] RDW SD 42.3 fl Normal 35.1-43.9 [facility] Comment on above: Performed By: #### L 100.0100, L501.5425, L500.2500 #### [facility] [address] [place], [address] WBC (Bld) [#/Vol] 8.7 10*3/uL Normal 4.4-11.0 [facility] Comment on above: Performed By: #### L 100.0100, L501.5425, L500.2500 #### [facility] [address] [place], [address] Chest 1 View (Portable)on Chest 1 View (Portable) [facility] Imaging Services [address] [place] [address] Chest 1 View (Portable) MR#: [id number] Acct: [id number] Name: EUFEMIA ABBASI Rep #: [id number] : 1965 M 58 From: Chino gutierres MD PCP: Real Lundberg, DIRECTOR EXPERIMENTAL MEDICINE-C Status: PRE ER Study: Chest 1 View (Portable) Date of Exam: 11/23/23 Exam# [id number] Ordering Dr: [place] [id number] STUDY: X-RAY CHEST REASON FOR EXAM: Male, 58 years old. CP TECHNIQUE: Single AP portable view of the chest. COMPARISON: None. FINDINGS: EKG electrodes are seen. The lungs are clear and expanded. There is no demonstrated pleural abnormality. Normal size heart. Normal mediastinum and homer. Normal visualized pulmonary arteries. There is atherosclerotic tortuosity of the aortic arch and descending thoracic aorta. There are diffuse degenerative changes of the visualized thoracic spine. Normal visualized ribs, clavicles, and shoulders. There is no demonstrated abnormality of the visualized soft tissue structures of the upper abdomen. RAD/Chest 1 View (Portable) IMPRESSION: No acute abnormality is seen. Electronically Signed: Chino Verdin MD at 15:01 EDT , CC: SAVANNAH Lundberg; Dr. Lucien Tyler MD Casting Repairer: Signed Normal [facility] Emergency Department Summary on 11-23-2023 Emergency Department Summary [facility] Medical Records Department [address] [place] [address] Emergency Department Summary 11/23/23 MR#: [id number] Acct: [id number] Name: EUFEMIA ABBASI Rep #: [id number] : 1965 58 From: Lucien Tyler MD PCP: SAVANNAH Castillo Status:REG ER Location: ED HPI History of Present Illness Chief Complaint: Chest Pain Informant: patient Narrative Narrative: Patient presents with left upper chest chest discomfort going down his arm along with some tingling there, no weakness, that been present since he woke up this morning. Seen about 1500. It has been there all day and constant. Nonpleuritic. With it present he went on a 30-minute walk about 1.5 miles or so, he had no worsening. He had no dyspnea. When he got home he got off the couch to walk to the kitchen and he felt short of breath. He has had episodes of the chest and arm discomfort seemingly randomly over the past 3 weeks or so and occasional dyspnea on exertion. Whenever he does not feel well he checks his blood pressure and it tends to be really high. He also had some palpitations 3 to 4 weeks ago, so his doctor changed his blood pressure medication and he has not had any more. He is scheduled to follow-up tomorrow to be evaluated for possible Holter monitor with his PCP. Also had an EKG with his PCP 3 to 4 weeks ago and was told he had a right bundle branch block. States he used to exercise more rigorously never had chest discomfort with it. He has been trying to walk twice a day for 30 minutes, approximately 20-minute miles, regularly and does not recall this exertion triggering chest discomfort. He has never had a stress test. He has a history of smoking and his father from heart attack at age 55. CVD Risk Factors: Positive for Hypertension, Family History 1' Diabetes or Hypercholesterolemia PE Risk Factors: Negative for Recent Travel/Surgery, Recent Immobilization, Prior DVT or PE, Cancer or OCP + Smoking + >/=35 PFSH PFSH Medical History (Updated 11/23/23 @ 17:[address] Lucien Tyler MD) Mitral valve prolapse Hypertension Allergy/AdvReac Type Severity Reaction Status Date / Time No Known Allergies Allergy Verified 11/23/23 14:10 Surgical History H/O right knee surgery Social History Smoking Status: Former smoker ROS [facility] ED Constitutional Constitutional ED: Denies chills, fever(s) or sweats Eyes Eyes: Denies change in vision or diplopia ENT ENT ED: Denies rhinorrhea or sore throat Cardiovascular Cardiovascular: Reports chest pain and palpitations; Denies lightheadedness, pedal edema or syncope Respiratory/Chest Respiratory/Chest: Reports dyspnea on exertion; Denies cough Gastrointestinal Gastrointestinal: Denies abdominal pain, diarrhea, nausea or vomiting Genitourinary Genitourinary ED: Denies dysuria or hematuria Musculoskeletal Musculoskeletal: Denies back pain or neck pain Integumentary Denies abscess or rash Neurologic Neurologic: Denies headache(s), paresthesias or weakness Psychiatric Psychiatric: Denies anxiety or suicidal thoughts EXAM Physical Exam Const Vital Signs: 11/23/23 14:10 11/23/23 14:37 11/23/23 14:37 Temperature 97.2 F L Temperature Source Temporal Pulse Rate 72 Respiratory Rate 16 Respiratory Effort Normal Blood Pressure 187/100 H Blood Pressure Mean 129 Pulse Ox 98 Oxygen Delivery Method Room Air Room Air 11/23/23 16:10 11/23/23 16:25 Temperature Temperature Source Pulse Rate 57 L 57 L Respiratory Rate 19 H Respiratory Effort Blood Pressure 132/92 H 143/94 H Blood Pressure Mean 105 Pulse Ox 95 Oxygen Delivery Method Room Air Positive well nourished and well developed General Appearance ED: well developed and NAD HEENT Reports moist mucous membranes normocephalic and atraumatic Eyes PERRL and EOMs intact bilaterally Neck full ROM and supple Resp normal respiratory effort and clear to auscultation bilaterally Cardio regular rate, regular rhythm and no murmurs GI non-tender and non-distended Auscultation: normoactive bowel sounds Palpation: soft Back/Spine no CVA tenderness General Back: other FROM Extremity normal to inspection General Extremety ED: Negative for edema, pulses abnormal or tenderness General Extremity: Negative for edema or pulses abnormal Neuro oriented x3, CN's II-XII intact bilaterally and no sensory deficits noted Sensorium / Orientation: awake and alert Motor Exam: strength 5/5 throughout Skin no rashes or lesions noted and no wounds Heart Score History: Moderately Suspicious ECG: Normal Age: >45 - <65 years Risk Factors: >/= 3 Risk Factors or History of CAD (more content not included)... Normal [facility] L501.4020on 11-23-2023 TROPONIN-I HS 9 pg/mL Normal 3.0-78.0 [facility] Comment on above: Result Comment: Idris cho Note: New Test Units and Gender Specific Reference Ranges. For more information see Policy Stat Procedure [facility] High Sensitivity Troponin (TNIH) and attachments. Performed By: #### L 501.4020 #### [facility] [address] [place], [place], [address] L501.5425on 11-23-2023 TROPONIN-I HS 9 pg/mL Normal 3.0-78.0 [facility] Comment on above: Order Comment: 1 Y Result Comment: Idris cho Note: New Test Units and Gender Specific Reference Ranges. For more information see Policy Stat Procedure [facility] High Sensitivity Troponin (TNIH) and attachments. Performed By: #### L 100.0100, L501.5425, L500.2500 #### [facility] [place], [address] .GFRon 07-03-2022 GFR 90 ml/min/1.73sqm Normal [facility] ([place]) Comment on above: Result Comment: GFR Population mean for , Non- Americans Ages 20-29 = 116 mL/min/1.73 sq.m. Ages 30-39 = 107 mL/min/1.73 sq.m. Ages 40-49 = 99 mL/min/1.73 sq.m. Ages 50-59 = 93 mL/min/1.73 sq.m. Ages 60-69 = 85 mL/min/1.73 sq.m. Ages 70+ = 75 mL/min/1.73 sq.m. Chronic Kidney Disease: Less than 60 mL/min/1.73 square meters End Stage Renal Disease: Less than 15 mL/min/1.73 square meters Performed By: #### C MP, GFR ####[address] [place], [place] [address] GFR Non- 74 ml/min/1.73sqm Normal [facility] ([place]) Comment on above: Result Comment: GFR Population mean for , Non- Americans Ages 20-29 = 116 mL/min/1.73 sq.m. Ages 30-39 = 107 mL/min/1.73 sq.m. Ages 40-49 = 99 mL/min/1.73 sq.m. Ages 50-59 = 93 mL/min/1.73 sq.m. Ages 60-69 = 85 mL/min/1.73 sq.m. Ages 70+ = 75 mL/min/1.73 sq.m. Chronic Kidney Disease: Less than 60 mL/min/1.73 square meters End Stage Renal Disease: Less than 15 mL/min/1.73 square meters Performed By: #### C MP, GFR ####[address] [place], [place] [address] CMPon 07-03-2022 Albumin Level 3.9 G/dL Normal 3.5-5.0 [facility] ([place]) Comment on above: Performed By: #### C MP, GFR ####[address] [place], [place] [address] Albumin/Globulin [Mass ratio] 1.2 {ratio} Normal 1.1-2.5 [facility] ([place]) Comment on above: Performed By: #### C MP, GFR ####[address] [place], [place] [address] ALP [Catalytic activity/Vol] 74 U/L Normal 40-135 [facility] ([place]) Comment on above: Performed By: #### C MP, GFR ####[address] [place], [place] [address] ALT [Catalytic activity/Vol] 19 U/L Normal 16-63 [facility] ([place]) Comment on above: Performed By: #### C MP, GFR ####[address] [place], [place] [address] AST [Catalytic activity/Vol] 29 U/L Normal 10-40 [facility] ([place]) Comment on above: Performed By: #### C MP, GFR ####[address] [place], [place] [address] Bili Total 0.4 mg/dL Normal 0.2-1.0 [facility] ([place]) Comment on above: Result Comment: Use of this assay is not recommended for patients undergoing treatment with eltrombopag due to the potential for falsely elevated results. Performed By: #### C MP, GFR ####[address] [place], [place] [address] BUN/Creatinine Ratio 19 ratio Normal 7-27 [facility] ([place]) Comment on above: Performed By: #### C MP, GFR ####[address] [place], [place] [address] Calcium [Mass/Vol] 8.7 mg/dL Normal 8.4-10.2 [facility] ([place]) Comment on above: Performed By: #### C MP, GFR ####[address] [place], [place] [address] Chloride [Moles/Vol] 105 mmol/L Normal 98-107 [facility] ([place]) Comment on above: Performed By: #### C MP, GFR ####[address] [place], [place] [address] CO2 [Moles/Vol] 29 mmol/L Normal 22-29 [facility] ([place]) Comment on above: Performed By: #### C MP, GFR ####[address] [place], [place] [address] Creatinine [Mass/Vol] 1.04 mg/dL Normal 0.70-1.30 [facility] ([place]) Comment on above: Performed By: #### C MP, GFR ####[address] [place], [place] [address] Electrolyte Balance 6.0 mEq/L Normal 4.0-15.0 [facility] ([place]) Comment on above: Performed By: #### C MP, GFR ####[address] [place], [place] [address] Globulin 3.2 G/dL Normal [facility] ([place]) Comment on above: Performed By: #### C MP, GFR ####[address] [place], [place] [address] Glucose [Mass/Vol] 107 mg/dL High 70-105 [facility] ([place]) Comment on above: Performed By: #### C MP, GFR ####[address] [place], [place] [address] Potassium [Moles/Vol] 4.5 mmol/L Normal 3.5-5.1 [facility] ([place]) Comment on above: Performed By: #### C MP, GFR ####[address] [place], [place] [address] Sodium [Moles/Vol] 140 mmol/L Normal 136-145 [facility] ([place]) Comment on above: Performed By: #### C MP, GFR ####[address] [place], [place] [address] Total Protein 7.1 G/dL Normal 6.4-8.2 [facility] ([place]) Comment on above: Performed By: #### C MP, GFR ####[address] [place], [place] [address] Urea nitrogen [Mass/Vol] 20 mg/dL High 7-18 [facility] ([place]) Comment on above: Performed By: #### C MP, GFR ####[address] [place], [place] [address] LABORATORYOrdered By: Natalie Vaughn on 07-03-2022 Albumin DL <= 20 mg/L (U) [Mass/Vol] mcg/dL Invalid Interpretation Code AO Chemistry S Albumin/Creatinine DL <= 20 mg/L (U) [Mass ratio] Unable to Calcu Invalid Interpretation Code 0 - 30 AO Chemistry S Creatinine (U) [Mass/Vol] 18.2 mg/dL Invalid Interpretation Code 39.0 - 259.0 mg/dL AO ADM SS LABORATORYOrdered By: SYSTEM SYSTEM on 07-03-2022 Albumin BCP dye [Mass/Vol] 3.9 G/dL Invalid Interpretation Code 3.5 - 5.0 G/dL AO ADM SS Albumin/Globulin [Mass ratio] 1.2 {ratio} Invalid Interpretation Code 1.1 - 2.5 ratio AO ADM SS ALP [Catalytic activity/Vol] 74 U/L Invalid Interpretation Code 40 - 135 U/L AO ADM SS ALT With P-5'-P [Catalytic activity/Vol] 19 U/L Invalid Interpretation Code 16 - 63 U/L AO ADM SS AST With P-5'-P [Catalytic activity/Vol] 29 U/L Invalid Interpretation Code 10 - 40 U/L AO ADM SS Bilirubin [Mass/Vol] 0.4 mg/dL Invalid Interpretation Code 0.2 - 1.0 mg/dL AO ADM SS Calcium [Mass/Vol] 8.7 mg/dL Invalid Interpretation Code 8.4 - 10.2 mg/dL AO ADM SS Chloride [Moles/Vol] 105 mmol/L Invalid Interpretation Code 98 - 107 mmol/L AO ADM SS CO2 [Moles/Vol] 29 mmol/L Invalid Interpretation Code 22 - 29 mmol/L AO ADM SS Creatinine [Mass/Vol] 1.04 mg/dL Invalid Interpretation Code 0.70 - 1.30 mg/dL AO ADM SS Electrolyte Balance 6.0 mEq/L Invalid Interpretation Code 4.0 - 15.0 mEq/L AO ADM SS GFR/1.73 sq M.predicted among blacks MDRD (S/P/Bld) [Vol rate/Area] 90 ml/min/1.73sqm Invalid Interpretation Code AO Chemistry S GFR/1.73 sq M.predicted among non-blacks MDRD (S/P/Bld) [Vol rate/Area] 74 ml/min/1.73sqm Invalid Interpretation Code AO Chemistry S Globulin 3.2 G/dL Invalid Interpretation Code AO ADM SS Glucose [Mass/Vol] 107 mg/dL Invalid Interpretation Code 70 - 105 mg/dL AO ADM SS Potassium [Moles/Vol] 4.5 mmol/L Invalid Interpretation Code 3.5 - 5.1 mmol/L AO ADM SS Protein [Mass/Vol] 7.1 G/dL Invalid Interpretation Code 6.4 - 8.2 G/dL AO ADM SS Sodium [Moles/Vol] 140 mmol/L Invalid Interpretation Code 136 - 145 mmol/L AO ADM SS Urea nitrogen [Mass/Vol] 20 mg/dL Invalid Interpretation Code 7 - 18 mg/dL AO ADM SS Urea nitrogen/Creatinine [Mass ratio] 19 ratio Invalid Interpretation Code 7 - 27 ratio AO ADM SS MALBRon 07-03-2022 U Creatinine 18.2 mg/dL Low 39.0-259.0 [facility] ([place]) Comment on above: Performed By: #### M ALBR #### [address] [address] U Microalb <130 Normal [facility] ([place]) Comment on above: Performed By: #### M ALBR #### [address] [address] U Ratio Alb/Cre Unable to Calcu Normal 0-30 [facility] ([place]) Comment on above: Performed By: #### M ALBR #### [address] [address] .Auto Diffon 06-22-2022 Basophil, Absolute 0.1 10 3/mcL Normal 0.0-0.2 [facility] ([place]) Comment on above: Performed By: #### C BC, ANEU, ADIFF, LIPID, PSA, VIDH, GFR, CMP #### [address] [address] Basophils/100 WBC (Bld) 1.4 % Normal 0.0-2.5 [facility] ([place]) Comment on above: Performed By: #### C BC, ANEU, ADIFF, LIPID, PSA, VIDH, GFR, CMP #### [address] [address] Eosinophil, Absolute 0.2 10 3/mcL Normal 0.0-0.4 [facility] ([place] Comment on above: Performed By: #### C BC, ANEU, ADIFF, LIPID, PSA, VIDH, GFR, CMP #### [address] [address] Eosinophils/100 WBC (Bld) 2.9 % Normal 0.0-7.0 [facility] ([place] Comment on above: Performed By: #### C BC, ANEU, ADIFF, LIPID, PSA, VIDH, GFR, CMP #### [address] [address] Lymphocyte, Absolute 2.4 10 3/mcL Normal 0.8-3.9 [facility] ([place] Comment on above: Performed By: #### C BC, ANEU, ADIFF, LIPID, PSA, VIDH, GFR, CMP #### [address] [address] Lymphocytes/100 WBC (Bld) 28.7 % Normal 10.0-50.0 [facility] ([place]) Comment on above: Performed By: #### C BC, ANEU, ADIFF, LIPID, PSA, VIDH, GFR, CMP #### [address] [address] Monocyte, Absolute 0.7 10 3/mcL Normal 0.2-1.0 [facility] ([place]) Comment on above: Performed By: #### C BC, ANEU, ADIFF, LIPID, PSA, VIDH, GFR, CMP #### [address] [address] Monocytes/100 WBC (Bld) 8.3 % Normal 1.7-13.0 [facility] ([place]) Comment on above: Performed By: #### C BC, ANEU, ADIFF, LIPID, PSA, VIDH, GFR, CMP #### [address] [address] [place], [place] [address] Neutrophils/100 WBC (Bld) 58.7 % Normal 37.0-80.0 [facility] ([place]) Comment on above: Performed By: #### C BC, ANEU, ADIFF, LIPID, PSA, VIDH, GFR, CMP #### [address] [address] .GFRon 06-22-2022 GFR 95 ml/min/1.73sqm Normal [facility] ([place]) Comment on above: Result Comment: GFR Population mean for , Non- Americans Ages 20-29 = 116 mL/min/1.73 sq.m. Ages 30-39 = 107 mL/min/1.73 sq.m. Ages 40-49 = 99 mL/min/1.73 sq.m. Ages 50-59 = 93 mL/min/1.73 sq.m. Ages 60-69 = 85 mL/min/1.73 sq.m. Ages 70+ = 75 mL/min/1.73 sq.m. Chronic Kidney Disease: Less than 60 mL/min/1.73 square meters End Stage Renal Disease: Less than 15 mL/min/1.73 square meters Performed By: #### C BC, ANEU, ADIFF, LIPID, PSA, VIDH, GFR, CMP ####[address] [address] GFR Non- 78 ml/min/1.73sqm Normal [facility] ([place]) Comment on above: Result Comment: GFR Population mean for , Non- Americans Ages 20-29 = 116 mL/min/1.73 sq.m. Ages 30-39 = 107 mL/min/1.73 sq.m. Ages 40-49 = 99 mL/min/1.73 sq.m. Ages 50-59 = 93 mL/min/1.73 sq.m. Ages 60-69 = 85 mL/min/1.73 sq.m. Ages 70+ = 75 mL/min/1.73 sq.m. Chronic Kidney Disease: Less than 60 mL/min/1.73 square meters End Stage Renal Disease: Less than 15 mL/min/1.73 square meters Performed By: #### C BC, ANEU, ADIFF, LIPID, PSA, VIDH, GFR, CMP ####[place] [id number] .NEUABSon 06-22-2022 Neutrophil, Absolute 4.8 10 3/mcL Normal 2.9-6.2 [facility] ([place]) Comment on above: Performed By: #### C BC, ANEU, ADIFF, LIPID, PSA, VIDH, GFR, CMP #### [place] [address] CBCon 06-22-2022 Erythrocyte distribution width (RBC) [Ratio] 13.3 % Normal 11.5-14.5 [facility] ([place]) Comment on above: Performed By: #### C BC, ANEU, ADIFF, LIPID, PSA, VIDH, GFR, CMP #### [place] [address] Hematocrit (Bld) [Volume fraction] 48.0 % Normal 42.0-52.0 [facility] ([place]) Comment on above: Performed By: #### C BC, ANEU, ADIFF, LIPID, PSA, VIDH, GFR, CMP #### [place] [address] Hgb 16.5 G/dL Normal 14.0-18.0 [facility] ([place]) Comment on above: Performed By: #### C BC, ANEU, ADIFF, LIPID, PSA, VIDH, GFR, CMP #### [place] [address] MCH (RBC) [Entitic mass] 30.5 pg Normal 27.0-31.2 [facility] ([place]) Comment on above: Performed By: #### C BC, ANEU, ADIFF, LIPID, PSA, VIDH, GFR, CMP #### [address] [address] MCHC 34.5 G/dL Normal 31.8-35.4 [facility] ([place]) Comment on above: Performed By: #### C BC, ANEU, ADIFF, LIPID, PSA, VIDH, GFR, CMP #### [address] [address] MCV (RBC) [Entitic vol] 88.4 fL Normal 80.0-94.0 [facility] ([place]) Comment on above: Performed By: #### C BC, ANEU, ADIFF, LIPID, PSA, VIDH, GFR, CMP #### [address] [address] Platelet 200 10 3/mcL Normal 130-400 [facility] ([place]) Comment on above: Performed By: #### C BC, ANEU, ADIFF, LIPID, PSA, VIDH, GFR, CMP #### [address] [address] Platelet mean volume (Bld) [Entitic vol] 8.5 fL Normal 7.4-10.4 [facility] ([place]) Comment on above: Performed By: #### C BC, ANEU, ADIFF, LIPID, PSA, VIDH, GFR, CMP #### [address] [address] RBC 5.42 10 6/mcL Normal 4.04-6.13 [facility] ([place]) Comment on above: Performed By: #### C BC, ANEU, ADIFF, LIPID, PSA, VIDH, GFR, CMP #### [address] [address] WBC 8.2 10 3/mcL Normal 4.6-10.8 [facility] ([place]) Comment on above: Performed By: #### C BC, ANEU, ADIFF, LIPID, PSA, VIDH, GFR, CMP #### [address] [address] CMPon 06-22-2022 Albumin Level 4.1 G/dL Normal 3.5-5.0 [facility] ([place]) Comment on above: Performed By: #### C BC, ANEU, ADIFF, LIPID, PSA, VIDH, GFR, CMP ####[address] [place], [place] [address] Albumin/Globulin [Mass ratio] 1.2 {ratio} Normal 1.1-2.5 [facility] ([place]) Comment on above: Performed By: #### C BC, ANEU, ADIFF, LIPID, PSA, VIDH, GFR, CMP ####[address] [place], [place] [address] ALP [Catalytic activity/Vol] 82 U/L Normal 40-135 [facility] ([place]) Comment on above: Performed By: #### C BC, ANEU, ADIFF, LIPID, PSA, VIDH, GFR, CMP ####[address] [place], [place] [address] ALT [Catalytic activity/Vol] 18 U/L Normal 16-63 [facility] ([place]) Comment on above: Performed By: #### C BC, ANEU, ADIFF, LIPID, PSA, VIDH, GFR, CMP ####[address] [place], [place] [address] AST [Catalytic activity/Vol] 26 U/L Normal 10-40 [facility] ([place]) Comment on above: Performed By: #### C BC, ANEU, ADIFF, LIPID, PSA, VIDH, GFR, CMP ####[address] [place], [place] [address] Bili Total 0.6 mg/dL Normal 0.2-1.0 [facility] ([place]) Comment on above: Result Comment: Use of this assay is not recommended for patients undergoing treatment with eltrombopag due to the potential for falsely elevated results. Performed By: #### C BC, ANEU, ADIFF, LIPID, PSA, VIDH, GFR, CMP ####[address] [place], [place] [address] BUN/Creatinine Ratio 17 ratio Normal 7-27 [facility] ([place]) Comment on above: Performed By: #### C BC, ANEU, ADIFF, LIPID, PSA, VIDH, GFR, CMP ####[address] [address] Calcium [Mass/Vol] 9.2 mg/dL Normal 8.4-10.2 [facility] ([place]) Comment on above: Performed By: #### C BC, ANEU, ADIFF, LIPID, PSA, VIDH, GFR, CMP ####[address] [place], [place] [address] Chloride [Moles/Vol] 105 mmol/L Normal 98-107 [facility] ([place]) Comment on above: Performed By: #### C BC, ANEU, ADIFF, LIPID, PSA, VIDH, GFR, CMP ####[address] [place], [place] [address] CO2 [Moles/Vol] 27 mmol/L Normal 22-29 [facility] ([place]) Comment on above: Performed By: #### C BC, ANEU, ADIFF, LIPID, PSA, VIDH, GFR, CMP ####[address] [place], [place] [address] Creatinine [Mass/Vol] 0.99 mg/dL Normal 0.70-1.30 [facility] ([place]) Comment on above: Performed By: #### C BC, ANEU, ADIFF, LIPID, PSA, VIDH, GFR, CMP ####[address] [place], [place] [address] Electrolyte Balance 9.0 mEq/L Normal 4.0-15.0 [facility] ([place]) Comment on above: Performed By: #### C BC, ANEU, ADIFF, LIPID, PSA, VIDH, GFR, CMP ####[address] [place], [place] [address] Globulin 3.5 G/dL Normal [facility] ([place]) Comment on above: Performed By: #### C BC, ANEU, ADIFF, LIPID, PSA, VIDH, GFR, CMP ####[address] [place], [place] [address] Glucose [Mass/Vol] 89 mg/dL Normal 70-105 [facility] ([place]) Comment on above: Performed By: #### C BC, ANEU, ADIFF, LIPID, PSA, VIDH, GFR, CMP ####[address] [place], [place] [address] Potassium [Moles/Vol] 4.3 mmol/L Normal 3.5-5.1 [facility] ([place]) Comment on above: Performed By: #### C BC, ANEU, ADIFF, LIPID, PSA, VIDH, GFR, CMP ####[address] [place], [place] [address] Sodium [Moles/Vol] 141 mmol/L Normal 136-145 [facility] ([place]) Comment on above: Performed By: #### C BC, ANEU, ADIFF, LIPID, PSA, VIDH, GFR, CMP ####[address] [place], [place] [address] Total Protein 7.6 G/dL Normal 6.4-8.2 [facility] ([place]) Comment on above: Performed By: #### C BC, ANEU, ADIFF, LIPID, PSA, VIDH, GFR, CMP ####[address] [place], [place] [address] Urea nitrogen [Mass/Vol] 17 mg/dL Normal 7-18 [facility] ([place]) Comment on above: Performed By: #### C BC, ANEU, ADIFF, LIPID, PSA, VIDH, GFR, CMP ####[address] [place], [place] [address] LABORATORYOrdered By: SYSTEM SYSTEM on 06-22-2022 25-hydroxyvitamin D3 [Mass/Vol] 30.2 ng/mL Invalid Interpretation Code AO ADM SS Albumin BCP dye [Mass/Vol] 4.1 G/dL Invalid Interpretation Code 3.5 - 5.0 G/dL AO ADM SS Albumin/Globulin [Mass ratio] 1.2 {ratio} Invalid Interpretation Code 1.1 - 2.5 ratio AO ADM SS ALP [Catalytic activity/Vol] 82 U/L Invalid Interpretation Code 40 - 135 U/L AO ADM SS ALT With P-5'-P [Catalytic activity/Vol] 18 U/L Invalid Interpretation Code 16 - 63 U/L AO ADM SS AST With P-5'-P [Catalytic activity/Vol] 26 U/L Invalid Interpretation Code 10 - 40 U/L AO ADM SS Bilirubin [Mass/Vol] 0.6 mg/dL Invalid Interpretation Code 0.2 - 1.0 mg/dL AO ADM SS Calcium [Mass/Vol] 9.2 mg/dL Invalid Interpretation Code 8.4 - 10.2 mg/dL AO ADM SS Chloride [Moles/Vol] 105 mmol/L Invalid Interpretation Code 98 - 107 mmol/L AO ADM SS CO2 [Moles/Vol] 27 mmol/L Invalid Interpretation Code 22 - 29 mmol/L AO ADM SS Creatinine [Mass/Vol] 0.99 mg/dL Invalid Interpretation Code 0.70 - 1.30 mg/dL AO ADM SS Electrolyte Balance 9.0 mEq/L Invalid Interpretation Code 4.0 - 15.0 mEq/L AO ADM SS GFR/1.73 sq M.predicted among blacks MDRD (S/P/Bld) [Vol rate/Area] 95 ml/min/1.73sqm Invalid Interpretation Code AO Chemistry S GFR/1.73 sq M.predicted among non-blacks MDRD (S/P/Bld) [Vol rate/Area] 78 ml/min/1.73sqm Invalid Interpretation Code AO Chemistry S Globulin 3.5 G/dL Invalid Interpretation Code AO ADM SS Glucose [Mass/Vol] 89 mg/dL Invalid Interpretation Code 70 - 105 mg/dL AO ADM SS Potassium [Moles/Vol] 4.3 mmol/L Invalid Interpretation Code 3.5 - 5.1 mmol/L AO ADM SS Prostate specific Ag [Mass/Vol] 0.42 ng/mL Invalid Interpretation Code 0.00 - 4.00 ng/mL AO ADM SS Protein [Mass/Vol] 7.6 G/dL Invalid Interpretation Code 6.4 - 8.2 G/dL AO ADM SS Sodium [Moles/Vol] 141 mmol/L Invalid Interpretation Code 136 - 145 mmol/L AO ADM SS Urea nitrogen [Mass/Vol] 17 mg/dL Invalid Interpretation Code 7 - 18 mg/dL AO ADM SS Urea nitrogen/Creatinine [Mass ratio] 17 ratio Invalid Interpretation Code 7 - 27 ratio AO ADM SS LABORATORYOrdered By: Kadi Mandel on 06-22-2022 Basophil, Absolute 0.1 103/mcL Invalid Interpretation Code 0.0 - 0.2 10^3/mcL AO Workflow SS Basophils/100 WBC (Bld) 1.4 % Invalid Interpretation Code 0.0 - 2.5 % AO Workflow SS Eosinophil, Absolute 0.2 103/mcL Invalid Interpretation Code 0.0 - 0.4 10^3/mcL AO Workflow SS Eosinophils/100 WBC (Bld) 2.9 % Invalid Interpretation Code 0.0 - 7.0 % AO Workflow SS Erythrocyte distribution width (RBC) [Ratio] 13.3 % Invalid Interpretation Code 11.5 - 14.5 % AO Workflow SS Hematocrit (Bld) [Volume fraction] 48.0 % Invalid Interpretation Code 42.0 - 52.0 % AO Workflow SS Hemoglobin (Bld) [Mass/Vol] 16.5 G/dL Invalid Interpretation Code 14.0 - 18.0 G/dL AO Workflow SS Lymphocyte, Absolute 2.4 103/mcL Invalid Interpretation Code 0.8 - 3.9 10^3/mcL AO Workflow SS Lymphocytes/100 WBC (Bld) 28.7 % Invalid Interpretation Code 10.0 - 50.0 % AO Workflow SS MCH (RBC) [Entitic mass] 30.5 pg Invalid Interpretation Code 27.0 - 31.2 pg AO Workflow SS MCHC 34.5 G/dL Invalid Interpretation Code 31.8 - 35.4 G/dL AO Workflow SS MCV (RBC) [Entitic vol] 88.4 fL Invalid Interpretation Code 80.0 - 94.0 fL AO Workflow SS Monocyte, Absolute 0.7 103/mcL Invalid Interpretation Code 0.2 - 1.0 10^3/mcL AO Workflow SS Monocytes/100 WBC (Bld) 8.3 % Invalid Interpretation Code 1.7 - 13.0 % AO Workflow SS Neutrophil, Absolute 4.8 103/mcL Invalid Interpretation Code 2.9 - 6.2 10^3/mcL AO Workflow SS Neutrophils/100 WBC (Bld) 58.7 % Invalid Interpretation Code 37.0 - 80.0 % AO Workflow SS Platelet mean volume (Bld) [Entitic vol] 8.5 fL Invalid Interpretation Code 7.4 - 10.4 fL AO Workflow SS Platelets (Bld) [#/Vol] 200 103/mcL Invalid Interpretation Code 130 - 400 10^3/mcL AO Workflow SS RBC (Bld) [#/Vol] 5.42 106/mcL Invalid Interpretation Code 4.04 - 6.13 10^6/mcL AO Workflow SS WBC (Bld) [#/Vol] 8.2 103/mcL Invalid Interpretation Code 4.6 - 10.8 10^3/mcL AO Workflow SS LABORATORYOrdered By: Natalie Vaughn on 06-22-2022 Cholesterol [Mass/Vol] 196 mg/dL Invalid Interpretation Code 0 - 200 mg/dL AO ADM SS Cholesterol in HDL [Mass/Vol] 58 mg/dL Invalid Interpretation Code 40 - 60 mg/dL AO ADM SS Cholesterol in LDL [Mass/Vol] 125 mg/dL Invalid Interpretation Code 0 - 130 mg/dL AO ADM SS Triglyceride [Mass/Vol] 64 mg/dL Invalid Interpretation Code 0 - 150 mg/dL AO ADM SS LIPIDon 06-22-2022 Cholesterol [Mass/Vol] 196 mg/dL Normal 0-200 [facility] ([place]) Comment on above: Result Comment: Chol esterol Reference Interval: Less than 200 Desirable 200-239 Borderline high risk 240 and above High risk Performed By: #### C BC, ANEU, ADIFF, LIPID, PSA, VIDH, GFR, CMP ####[address] [place], [place] [address] Cholesterol in HDL [Mass/Vol] 58 mg/dL Normal 40-60 [facility] ([place]) Comment on above: Performed By: #### C BC, ANEU, ADIFF, LIPID, PSA, VIDH, GFR, CMP ####[address] [place], [place] [address] Cholesterol in LDL [Mass/Vol] 125 mg/dL Normal 0-130 [facility] ([place]) Comment on above: Performed By: #### C BC, ANEU, ADIFF, LIPID, PSA, VIDH, GFR, CMP ####[address] [place], [place] [address] Triglyceride [Mass/Vol] 64 mg/dL Normal 0-150 [facility] ([place]) Comment on above: Result Comment: Trig lyceride Reference Interval: Less than 150 Normal 150-199 Borderline high risk 200-499 High risk 500 or higher Very high risk Performed By: #### C BC, ANEU, ADIFF, LIPID, PSA, VIDH, GFR, CMP ####[address] [place], [place] [address] PSAon 06-22-2022 Prostate Specific Antigen 0.42 ng/mL Normal 0.00-4.00 [facility] ([place]) Comment on above: Performed By: #### C BC, ANEU, ADIFF, LIPID, PSA, VIDH, GFR, CMP #### [address] [address] VIDHon 06-22-2022 Vit. D 25-Hydroxy 30.2 ng/mL Normal [facility] ([place]) Comment on above: Result Comment: Inte rpretive Values Based on Total 25(OH) Vitamin D: Deficient <20 ng/mL Insufficient 20 - <30 ng/mL Sufficient 30-100 ng/mL Performed By: #### C BC, ANEU, ADIFF, LIPID, PSA, VIDH, GFR, CMP #### [address] [address] BMP (POC)on 06-20-2022 Perf Loc - POCT Tested at AM Normal [facility] ([place]) Comment on above: Result Comment: [facility] [address] [place], [place] [address] BUN/Creatinine Ratio (POC) 15.2 ratio Normal 10.0-22.0 [facility] ([place]) Calcium Level Ionized (POC) 1.13 mmol/L Normal 1.12-1.32 [facility] ([place]) Chloride [Moles/Vol] 106 mmol/L Normal 98-110 [facility] ([place]) CO2 [Moles/Vol] 26 mmol/L Normal 22-32 [facility] ([place]) Creatinine [Mass/Vol] 0.79 mg/dL Normal 0.60-1.40 [facility] ([place]) Electrolyte Balance (POC) 12.0 mEq/L Normal 4.0-15.0 [facility] ([place]) Est GFR (POC) >60 Normal [facility] ([place]) Comment on above: Result Comment: Chronic Kidney Disease: Less than 60 mL/min/1.73 square meters End Stage Renal Disease: Less than 15 mL/min/1.73 square meters Est GFR Non- (POC) >60 Normal [facility] ([place]) Comment on above: Result Comment: Chronic Kidney Disease: Less than 60 mL/min/1.73 square meters End Stage Renal Disease: Less than 15 mL/min/1.73 square meters Glucose [Mass/Vol] 124 mg/dL High 70-110 [facility]) Performing Instrument - POCT EPOC 3 Normal [facility]) Potassium [Moles/Vol] 3.9 mmol/L Normal 3.5-5.0 [facility]) Sodium [Moles/Vol] 143 mmol/L Normal 136-145 [facility]) Urea nitrogen [Mass/Vol] 12.0 mg/dL Normal 8.0-22.0 [facility]) CBC (POC)on 06-20-2022 Perf Loc - POCT Tested at AM Normal [facility]) Comment on above: Result Comment: [place] [facility] [place], [place] [address] Basophil, Absolute (POC) 0.07 10 3/mcL Normal 0.00-0.27 [facility]) Basophils/100 WBC (Bld) 1.0 % Normal 0.0-2.5 [facility] ([place]) Eosinophil, Absolute (POC) 0.29 10 3/mcL Normal 0.00-0.65 [facility] ([place]) Eosinophils/100 WBC (Bld) 4.3 % Normal 0.0-6.0 [facility] ([place]) Erythrocyte distribution width (RBC) [Ratio] 12.2 % Normal 11.5-15.5 [facility]) Hematocrit (Bld) [Volume fraction] 45.1 % Normal 40.0-52.0 [facility]) Hemoglobin (POC) 15.5 G/dL Normal 13.0-17.5 [facility] ([place]) Imm Granulocyte, Absolute (POC) 0.00 10 3/mcL Normal [facility] ([place]) Immature granulocytes/100 WBC (Bld) 0.0 % Normal [facility] ([place]) Lymphocyte, Absolute (POC) 2.56 10 3/mcL Normal 0.90-4.32 [facility]) Lymphocytes/100 WBC (Bld) 37.9 % Normal 20.0-40.0 [facility]) MCH (RBC) [Entitic mass] 30.2 pg Normal 27.0-33.0 [facility] ([place]) MCHC (POC) 34.4 G/dL Normal 32.0-36.0 [facility] ([place]) MCV (RBC) [Entitic vol] 87.7 fL Normal 81.0-100.0 [facility] ([place]) Monocyte, Absolute (POC) 0.67 10 3/mcL Normal 0.09-1.40 [facility]) Monocytes/100 WBC (Bld) 9.9 % Normal 2.0-13.0 [facility]) Neutrophil, Absolute (POC) 3.16 10 3/mcL Normal 2.25-8.10 [facility]) Neutrophils/100 WBC (Bld) 46.9 % Low 50.0-75.0 [facility]) Performing Instrument - POCT SYSMEX Normal [facility]) Platelet (POC) 180 10 3/mcL Normal 150-450 [facility]) Platelet mean volume (Bld) [Entitic vol] 9.8 fL Normal 6.4-10.5 [facility] ([place]) RBC (POC) 5.14 10 6/mcL Normal 4.50-6.00 [facility] ([place]) WBC (POC) 6.75 10 3/mcL Normal 4.50-10.80 [facility] ([place]) DDIMER (POC)on 06-20-2022 Perf Loc - POCT Tested at AM Normal [facility] ([place]) Comment on above: Result Comment: [facility] [address] [place], [place] [address] D-dimer (POC) <100 Normal <=349 [facility] ([place]) Comment on above: Result Comment: The result of the D-Dimer test should be evaluated in the context of all the clinical and laboratory data available. In those instances where the laboratory result does not agree with the clinical evaluation, additional tests should be performed accordingly. Performing Instrument - POCT TRIAGE2 Normal [facility]) TROP (POC)on 06-20-2022 Perf Loc - POCT Tested at AM Normal [facility] ([place]) Comment on above: Result Comment: [facility] [address] [place], [place] [address] Performing Instrument - POCT TRIAGE1 Normal [facility] ([place]) Troponin I.cardiac [Mass/Vol] ng/mL Normal <=0.05 [facility] ([place]) Comment on above: Result Comment: Trop onin I reference ranges: <0.05 ng/mL Negative and non-diagnostic. >=0.05 ng/mL Consistent with cardiac damage, increased clinical risk and possibility of myocardial infarction. Serial measurements, a rise & fall in test results, clinical history, appropriate symptoms and/or ECG changes may help assess possibility of NH. *Other non-acute coronary syndrome conditions such as CHF, myocarditis, pulmonary emboli, sepsis and cardiac surgery could result in myocardial damage and increased troponin levels. XR CHEST 1 VIEWon 06-20-2022 XR CHEST 1 VIEW ORIGINAL EXAMINATION: ONE XRAY VIEW OF THE CHEST 06/20/2022 1:13 pm COMPARISON: None. HISTORY: ORDERING SYSTEM PROVIDED HISTORY: Reason for Exam: Shortness of breath FINDINGS: Cardiac silhouette is normal. No focal consolidation, vascular congestion, pleural effusion, or pneumothorax. Included osseous structures are unremarkable. IMPRESSION: No acute radiographic process. I have personally reviewed the images of this examination and agree with the resident's findings and interpretations. Interpreted by: Christiano Garcia MD Preliminary Report By: Augustina Carrasquillo Electronically signed By Christiano Garcia MD Dictated Date: 06/20/2022 1:15:25 PM Prelim Date: 06/20/2022 1:16:41 PM Sign Date: 06/20/2022 1:35:58 PM Ordering Provider: KT Sweet [facility] ([place]) Encounters Encounter Date Encounter Type Care Provider Facility Start: 01-27-2024 ambulatory Lonnie Zelaya Facility:[facility] Start: 01-27-2024 End: 01-27-2024 ambulatory Real Lundberg DIRECTOR EXPERIMENTAL MEDICINE Facility:[facility] Start: 01-02-2024 End: 01-02-2024 ambulatory REAL LUNDBERG MANAGER FIBER - FIXED [employer]TE BUS OPERATOR Facility:[facility] Start: 01-02-2024 End: 01-02-2024 Patient encounter procedure REAL LUNDBERG MANAGER [employer] - FIXED ROUTE BUS OPERATOR [facility] Start: 11-23-2023 End: 11-23-2023 Emergency department patient visit Real Lundberg NP Facility:[facility] Start: 04-10-2023 ambulatory Olivia Mayrajuancarlos Umanzor ty:[facility] Start: 07-07-2022 End: 07-08-2022 ambulatory REAL LUNDBERG MANAGER FIBER - FIXED ROUTE BUS OPERATOR Facility:[facility] Start: 07-03-2022 End: 07-04-2022 ambulatory REAL ROGERSPKINS MANAGER FIBER - FIXED ROUTE BUS OPERATOR Facility:[facility] Start: 07-03-2022 End: 07-03-2022 Patient encounter procedure REAL LUNDBERG MANAGER FIBER - FIXED ROUTE BUS OPERATOR [facility] Start: 06-22-2022 End: 06-23-2022 ambulatory REAL ROGERSPKINS MANAGER FIBER - FIXED ROUTE BUS OPERATOR Facility:[facility] Start: 06-22-2022 End: 06-22-2022 Patient encounter procedure REAL LUNDBERG MANAGER FIBER - FIXED ROUTE BUS OPERATOR [facility] Start: 06-20-2022 End: 06-20-2022 Emergency department patient visit KT CHAN MD Facility:A Payers Date Payer Category Payer Unknown [id number] 2023 Unknown [id number] 2023 Self-pay 2023 Unknown [id number] 2022 Unknown [id number] 1966 Unknown [id number] 2.16.8 [id number] 1966 Unknown [id number] 2.16.8 [id number] 1966 Unknown [id number] .16.8 [id number] 1966 Unknown [id number] 2.16.8 [id number] 1966 Unknown [id number] 2.16.8 [id number] Unknown [id number] 2.16.8 [id number] Unknown [id number] 2.16.8 [id number] Unknown [id number] 2.16.8 [id number] Unknown [id number] 2.16.8 [id number] Social History Date Type Detail Facility Start: 06-22-2022 End: 01-02-2024 Tobacco smoking status Ex-smoker (finding) [facility] [place] Sex Assigned At Sex [facility] Evaluation + Plan note Note Date & Type Note Facility Evaluation + Plan note Future Appointments Appointment Date:07/15/2022 07:20:00 AM Scheduled Provider:REAL LUNDBERG APRN, CNP Location[facility] Appointment Type:PC OV Follow Up [facility] Evaluation + Plan note Note Date & Type Note Facility Evaluation + Plan note Future Appointments Appointment Date:07/07/2022 02:00:00 PM Scheduled Provider: Location:[facility] Appointment Type:CV Procedure - AOH Echo Appointment Date:07/15/2022 07:20:00 AM Scheduled Provider:REAL LUNDBERG APRN, CNP Location:[email or web address] [place] Appointment Type:PC OV Follow Up [facility] Evaluation + Plan note Laboratory Note Date & Type Note Facility Evaluation + Plan note Future Appointments Appointment Date:07/02/2024 07:00:00 AM Scheduled Provider:REAL LUNDBERG APRN, CNP Location:[facility] [place] Appointment Type:PC OV Future Scheduled TestsProstate Specific Antigen 01/04/24A1C Hemoglobin 01/04/24Lipid Profile 01/04/24Complete Metabolic Panel 01/04/24 [facility] Hospital course Narrative Note Date & Type Note Facility Hospital course Narrative No data available for this section [facility] Hospital Discharge instructions Note Date & Type Note Facility Hospital Discharge instructions No data available for this section [facility] Progress note Note Date & Type Note Facility Progress note No data available for this section [facility] Summary Purpose Family History No Family History Records FoundNo Family History Records Found No data available for this section No Family History Records Found Advance Directives No Advanced Directives Records FoundNo Advanced Directives Records FoundNo Advanced Directives Records Found Additional Source Comments Patient Care team informatio n (unrecognized section and content) Care Team Personnel Name: REAL LUNDBERG MANAGER FIBER - FIXED ROUTE BUS OPERATOR Position: P4 [employer] Member Role: Primary Care Physician Address: Address: [address] [place] [address] Care Team Related Persons Name: AIXA GUTIERREZH Address: Home [address] [place], [id number] Care Team Personnel Name: REAL LUNDBERG MANAGER FIBER - FIXED ROUTE BUS OPERATOR Position: P4 [employer] Member Role: Primary Care Physician Address: Address: [address] [place] [address] Care Team Related Persons Name: AIXA GUTIERREZH Address: Home [address] [place], [place] [id number] (unrecognized sect ion and content) No Status Records FoundNo Status Records FoundNo Status Records Found INFORMATION SOURCE (unrecogn ized section and content) DATE CREATED AUTHOR 07/31/2022 [facility]ly [facility] ([place]) DATE CREATED AUTHOR AUTHOR'S ORGANIZ ATION 01/03/2024 [facility] DATE CREATED AUTHOR AUTHOR'S ORGANIZ ATION 03/05/2024 [facility] FOR RECORDS PERTAINING TO PATIENTS WHO ARE OR HAVE BEEN ENROLLED IN A CHEMICAL DEPENDENCY/SUBSTANCEABUSE PROGRAM, SOME INFORMATION MAY BE OMITTED. This clinical summary was aggregated from multiple sources. Caution should be exercised in using it in the provision of clinical care. This summary normalizes information from multiple sources, and as a consequence, information in this document may materially change the coding, format and clinical context of patient data. In addition, data may be omitted in some cases. CLINICAL DECISIONS SHOULD BE BASED ON THE PRIMARY CLINICAL RECORDS. [employer] [facility]. provides no warranty or guarantee of the accuracy or completeness of information in this document.
[2025-01-01 16:52] LABS: Hematocrit 45.5 % (40-54); Hemoglobin 15.5 g/dL (13.0-16.5); Mean Corp Hgb Conc 34.1 g/dL (32-36); Mean Corpuscular Volume 88.3 fL (80-94); Mean Platelet Vol. 10.8 fl (6.2-12.0); Platelet Count 207 K/mm3 (150-450); RBC Distribution Width CV 13.2 % (11.6-14.6); RBC Distribution Width SD 43.3 fl (35.1-43.9); Red Blood Count 5.15 M/mm3 (4.6-6.2); White Blood Count 6.8 K/mm3 (4.4-11.0)
[2025-01-01 17:17] LABS: AST(SGOT) 26 U/L (<=37); Alanine Aminotransfer ALT/SGPT 8 U/L (<=46); Albumin, Serum 4.3 g/dL (3.5-5.0); Alkaline Phosphatase 74 U/L (40-129); Anion Gap 13 (5-15); BUN 17 mg/dL (4-19); BUN/Creat Ratio 20.4 RATIO (10-20); Calcium,Total 9.3 mg/dL (7.6-11.0); Carbon Dioxide 20.3 mmol/L (21.0-32.0); Chloride 104 mmol/L (98-108); Cholesterol 184 mg/dL (<=200); Globulin 3.3 g/dL (2.2-4.2); Glucose 90 mg/dL (70-99); Low Density Lipoprotein Calc. 116 mg/dL; Potassium 4.1 mmol/L (3.3-5.1); Triglycerides 70 mg/dL; Very Low Density Lipoprotein 14 mg/dL (5-40); cholesterol:hdl ratio screen 3.33
== END | disposition home or self-care (01) ==
LOC: VSLAB 13:49
PROVIDERS: PCP Nurse Practitioner Family; Referring Provider Nurse Practitioner Family; Visit Provider Nurse Practitioner Family
DX: Z00.00 Encounter for general adult medical examination without abnormal findings (principal)
CPT/HCPCS: 36415; 80053; 80061; 83036; 85027